=== PATIENT | male | born 1930 | race Caucasian/White ===

== ENCOUNTER 2017-12-23 07:32 | Day surgery (SDC) | payer MEDICARE, OTHER ==
[~2017-12-23 07:32] MED LIST: Lactated Ringers 1,000 ML IV SCH; Lidocaine 1% 2 ML ONE; Lidocaine 1% 50 ML MDV ONE; Lidocaine 1% with EPINEPHrine 1:100,000 20 ML MDV ONE; Lidocaine 1%/Sod Bicarbonate in NS 8.4% 1 ML Syringe IDERM PRN; Propofol 200 MG/20 ML SDV ONE; Sodium Chloride 0.9% 10 ML Syringe FLUSH PRN; fentaNYL 100 MCG/2 ML SDV ONE
--- NOTE | 2017-12-23 07:52 | PCM.PREANE ---
Preanesthetic Assessment - Procedure Proposed Procedure: excision left cheek basal cell ca - Anesthesia/Transfusion/Family Hx Anesthesia History: Prior Anesthesia Without Reaction Family History of Anesthesia Reaction: No Transfusion History: No Prior Transfusion(s) - Review of Systems General: No Symptoms Pulmonary: No Symptoms Cardiovascular: No Symptoms Gastrointestinal: No Symptoms Neurological: No Symptoms Other: Reports: Diabetes, Depression, Anxiety - Physical Assessment NPO Status Date: 12/22/17 (sip of water with am pills) NPO Status Time: 20:00 Pulse: 67 O2 Sat by Pulse Oximetry: 93 Respiratory Rate: 16 Blood Pressure: 174/87 Temperature: 97.6 F Height: 5 ft 7 in Weight: 79.4 kg ASA Class: 3 Mental Status: Alert & Oriented x3 Airway Class: Mallampati = 2 Dentition: Reports: Broken Tooth/Teeth, Missing Tooth/Teeth Thyro-Mental Finger Breadths: 3 Mouth Opening Finger Breadths: 3 ROM/Head Extension: Full Lungs: Clear to Auscultation, Normal Respiratory Effort Cardiovascular: Regular Rate, Regular Rhythm - Allergies Allergies/Adverse Reactions: Allergies Allergy/AdvReac Type Severity Reaction Status Date / Time ceftriaxone [From Rocephin] Allergy Cannot Verified 12/20/17 10:35 Remember Sulfa (Sulfonamide Allergy Cannot Verified 12/20/17 10:35 Antibiotics) Remember contrast dye Allergy Cannot Uncoded 12/20/17 10:35 Remember - Blood Blood Available: No - Acknowledgements Anesthesia Type Planned: MAC Pt an Appropriate Candidate for the Planned Anesthesia: Yes Alternatives and Risks of Anesthesia Discussed w Pt/Guardian: Yes Pt/Guardian Understands and Agrees with Anesthesia Plan: Yes PreAnesthesia Questionnaire HEENT History: Reports: Impaired Vision Cardiovascular History: Reports: High Cholesterol, Hypertension Respiratory History: Reports: Other (See Below) Other Respiratory History: abnormal PFTs Genitourinary History: Reports: BPH, Other (See Below) Other Genitourinary History: erectile dysfunction, impaired renal function, urosepsis [employer] History: Reports: None Musculoskeletal History: Reports: None Psychiatric History: Reports: Anxiety Endocrine/Metabolic History: Reports: None, Other (See Below) (pre diabetic) Hematologic History: Reports: None Immunologic History: Reports: None Oncologic (Cancer) History: Reports: Basal Cell Carcinoma - Past Surgical History Head Surgeries/Procedures: Reports: None HEENT Surgical History: Reports: Cataract Surgery Cardiovascular Surgical History: Reports: None Respiratory Surgical History: Reports: None GI Surgical History: Reports: None Female Surgical History: Reports: None Male Surgical History: Reports: None Endocrine Surgical History: Reports: None Neurological Surgical History: Reports: Lumbar Spine Musculoskeletal Surgical History: Reports: None Oncologic Surgical History: Reports: None Dermatological Surgical History: Reports: Skin Biopsy - SUBSTANCE USE Smoking Status *Q: Former Smoker Tobacco Use Within Last Twelve Months: Snuff/Dip (today) Second Hand Smoke Exposure: No Days Per Week of Alcohol Use: 1 (3 times a month) Recreational Drug Use History: No - HOME MEDS Home Medications: Home Meds ALPRAZolam [Xanax] 0.5 mg PO BEDTIME PRN 12/20/17 [History] Aspirin [Halfprin] 81 mg PO DAILY 12/20/17 [History] Betaxolol HCl 1 drop EYEBOTH ASDIRECTED 12/20/17 [History] Carbidopa/Levodopa [Sinemet 25-100 mg Tablet] 1 tab PO TID 12/20/17 [History] Diltiazem HCl [Cardizem Cd] 120 mg PO DAILY 12/20/17 [History] Gabapentin [Neurontin] 300 mg PO TID 12/20/17 [History] Ibuprofen [Advil] 600 mg PO TID PRN 12/20/17 [History] Naproxen Sodium [Aleve] 220 mg PO BID PRN 12/20/17 [History] - CURRENT (IN HOUSE) MEDS Current Meds: Current Medications Lactated Ringer's (Ringers, Lactated) 1,000 mls @ 125 mls/hr IV ASDIRECTED HUSSAIN Stop: 12/23/17 23:00 Lidocaine/Sodium Bicarbonate (Buffered Lidocaine 1% In Ns 8.4%) 0.25 ml IDERM ONETIME PRN PRN Reason: Prior to IV Start Stop: 12/23/17 18:00 Sodium Chloride (Saline Flush) 10 ml FLUSH ASDIRECTED PRN PRN Reason: Keep Vein Open Stop: 12/23/17 18:00 Discontinued Medications Fentanyl (Sublimaze) Confirm Administered Dose 100 mcg .ROUTE .STK-MED ONE Stop: 12/23/17 07:32 Lidocaine HCl (Xylocaine-Mpf 1%) Confirm Administered Dose 4 mls @ as directed .ROUTE .STK-MED ONE Stop: 12/23/17 07:32 Lidocaine HCl (Xylocaine 1%) Confirm Administered Dose 50 ml .ROUTE .STK-MED ONE Stop: 12/23/17 07:27 Lidocaine/Epinephrine (Xylocaine 1% With Epinephrine 1:100,000) Confirm Administered Dose 20 ml .ROUTE .STK-MED ONE Stop: 12/23/17 07:27 Propofol (Diprivan 20 Ml) Confirm Administered Dose 400 mg .ROUTE .STK-MED ONE Stop: 12/23/17 07:32
[2017-12-23] MEDS ORDERED: Bacitracin Oint 15 GM Tube ONE (08:34)
[2017-12-23] MEDS ORDERED: Ondansetron 4 MG/2 ML SDV IVPUSH PRN (09:15)
--- NOTE | 2017-12-23 09:24 | PCM.OPNOTE ---
- General Post-Op/Procedure Note Date of Surgery/Procedure: 12/23/17 Operative Procedure(s): excision of basal cell of the left cheek under forzen section control Pre Op Diagnosis: basal cell of the left cheek Post-Op Diagnosis: Same Anesthesia Technique: MAC Primary Surgeon: Jose Hatfield EBL in mLs: 10 Complications: None Condition: Good
--- NOTE | 2017-12-23 09:29 | PCM48HPAN ---
Post Anesthesia Note - EVALUATION WITHIN 48HRS OF ANESTHETIC Vital Signs in Normal Range: Yes Patient Participated in Evaluation: Yes Respiratory Function Stable: Yes Airway Patent: Yes Cardiovascular Function Stable: Yes Hydration Status Stable: Yes Pain Control Satisfactory: Yes Nausea and Vomiting Control Satisfactory: Yes Mental Status Recovered: Yes Pulse Rate: 63 SaO2: 93 Resp Rate: 14 Temperature: 97.8 F Blood Pressure: 134/79
--- NOTE | 2017-12-23 17:27 | OR ---
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 OPERATION PERFORMED: Excision under frozen section control and layered closure, IV sedation, margin of the lesion is 2 cm. DESCRIPTION OF PROCEDURE: The patient was taken to the operating room, placed in a supine position, connected to monitoring equipment, and given IV sedation. The lesion having been marked was prepped with DuraPrep, draped off in a sterile fashion. Elliptically, an incision was then made after clipping the area and prepping and anesthetizing with 1% Xylocaine with epinephrine. It was elliptically incised, the lesion and margin were measured. Sent to pathology with medial margin marked with a silk suture. Frozen section controlled showed clear margins. The skin edges were undermined and brought together with 4-0 Vicryl suture and the skin with interrupted 4-0 Prolene suture. Sterile dressing placed. The patient tolerated the procedure, sent to recovery room in a stable condition. About 10 mL of blood loss was noted. ANESTHESIA: ESTIMATED BLOOD LOSS: MMODAL /[id number]
--- NOTE | 2018-01-01 13:35 | OR ---
DATE OF OPERATION: 12/23/2017 SURGEON: Jose Hatfield MD ADDENDUM: OPERATION PERFORMED: Excision under frozen section control and layered closure, margin and lesion measured 2 cm. MMODAL /[id number]
== END 2017-12-23 10:15 | disposition home or self-care (01) ==
LOC: JD.SDS 07:32
PROVIDERS: ATTEND Surgery
DX: C44.319 Basal cell carcinoma of skin of other parts of face (principal); L82.1 Other seborrheic keratosis; E11.9 Type 2 diabetes mellitus without complications; I10 Essential (primary) hypertension; K21.9 Gastro-esophageal reflux disease without esophagitis; Z98.890 Other specified postprocedural states; Z79.82 Long term (current) use of aspirin; Z79.899 Other long term (current) drug therapy; Z88.2 Allergy status to sulfonamides; Z88.1 Allergy status to other antibiotic agents; Z91.041 Radiographic dye allergy status; Z87.891 Personal history of nicotine dependence; E78.00 Pure hypercholesterolemia, unspecified; F41.9 Anxiety disorder, unspecified
CPT/HCPCS: 11642; 12051; 82962; 88305; A9270; J3010; J7120; 00300; J2704